=== PATIENT | female | born 1975 | race Caucasian/White ===

== ENCOUNTER → 2019-03-05 10:21 | Outpatient (CLI) | payer BC, SELFPAY ==
--- NOTE | 2019-03-05 10:34 | MRI_ITS ---
STUDY: MRI LUMBAR SPINE WITHOUT CONTRAST REASON FOR EXAM: Female, 43 years old. Back pain. Left leg numbness. TECHNIQUE: Standardized fat and water weighted pulse sequences were obtained in the sagittal and axial planes. COMPARISON: None. FINDINGS: Lumbar straightening. No significant scoliosis. Conus medullaris terminates normally at the L2 level. No acute fracture line. No cortical destruction. No dislocation. No spondylolisthesis. T12-L1: Normal endplates. Normal disc height, hydration and morphology. Normal bilateral facet joints. Normal central canal and bilateral lateral recesses. Normal bilateral intervertebral neural foramina. L1-2: Normal endplates. Shallow right paracentral disc protrusion without central canal narrowing (sagittal image 8 series 2 and axial image 22 series 5). Normal bilateral facet joints. Normal central canal and bilateral lateral recesses. Normal bilateral intervertebral neural foramina. L2-3: Normal endplates. Normal disc height, hydration and morphology. Normal bilateral facet joints. Normal central canal and bilateral lateral recesses. Normal bilateral intervertebral neural foramina. L3-4: Normal endplates. Normal disc height, hydration and morphology. Normal bilateral facet joints. Normal central canal and bilateral lateral recesses. Normal bilateral intervertebral neural foramina. L4-5: Normal endplates. Disc bulge, broad central protrusion, with mild central canal narrowing. Minimal facet joint arthrosis. Left lateral recess narrowing with impingement. Bilateral neural femoral narrowing without impingement. L5-S1: Mild endplate spondylosis. Disc bulge, annular fissure, with mild central canal narrowing. Minimal facet joint arthrosis. Normal bilateral lateral recesses. Bilateral neural frontal narrowing with impingement on the right. Sacrum intact. Normal paraspinal muscles. Normal retroperitoneum. Normal aorta. Marrow signal suggests red marrow reconversion/anemia. MRI/Spine Lumbar (Routine) IMPRESSION: Multilevel intervertebral disc disease with mild central canal narrowing at L4-5 and L5-S1 Left lateral recess narrowing with impingement of the left descending L5 nerve root Multilevel neural femoral narrowing with impingement of the right exiting L5 nerve root Lumbar straightening with minimal osseous degenerative change Bone marrow signal suggests red marrow reconversion/anemia (correlate CBC) Electronically Signed: Mick Kingston DO at 15:32 EDT Tel , Service support ,
== END ==
PROVIDERS: Family Provider Orthopaedic Surgery; PCP Orthopaedic Surgery; Referring Provider Anesthesiology Pain Medicine; Visit Provider Anesthesiology Pain Medicine
DX: M54.9 Dorsalgia, unspecified (principal); M79.605 Pain in left leg; R29.898 Other symptoms and signs involving the musculoskeletal system
CPT/HCPCS: 72148

== ENCOUNTER → 2019-06-01 12:57 | Outpatient (CLI) | payer BC, SELFPAY ==
--- NOTE | 2019-06-01 12:58 | RAD_ITS ---
STUDY: X-RAY - LUMBAR SPINE REASON FOR EXAM: Female, 44 years old. Low back pain, radiating numbness TECHNIQUE: 4 view(s) of the lumbar spine were obtained. COMPARISON: None FINDINGS: Normal lumbar lordosis. There is no substantial scoliosis. There is a normal alignment of the vertebrae. Normal vertebral bodies and endplates. Normal disc space heights except for narrowing at L5/S1. There is no demonstrated fracture. The soft tissue structures are unremarkable. RAD/L/S Spine Min 4 Views IMPRESSION: Degenerative changes at L5/S1, otherwise unremarkable lumbar spine Electronically Signed: Alberto Cerda MD at 14:01 EDT , Service support ,
--- NOTE | 2019-06-01 13:40 | RAD_ITS ---
STUDY: X-RAY - CERVICAL SPINE REASON FOR EXAM: Female, 44 years old. Neck pain and headache TECHNIQUE: 4 view(s) of the cervical spine were obtained. COMPARISON: None FINDINGS: Normal anterior atlantoaxial articulation. Normal odontoid process. Normal cervical lordosis. Normal vertebral bodies and endplates. Normal disc space heights. No evidence of instability on the flexion or extension views The soft tissue structures are unremarkable. RAD/Cerv Spine 4 or 5 Views IMPRESSION: Normal x-ray examination of the visualized cervical spine. Electronically Signed: Alberto Cerda MD at 14:09 EDT , Service support ,
== END ==
PROVIDERS: Family Provider Orthopaedic Surgery; PCP Orthopaedic Surgery; Referring Provider Orthopaedic Surgery; Visit Provider Orthopaedic Surgery
DX: M54.16 Radiculopathy, lumbar region (principal); R29.898 Other symptoms and signs involving the musculoskeletal system
CPT/HCPCS: 72050; 72110

== ENCOUNTER → 2019-06-16 | Outpatient (CLI) | payer BC, SELFPAY ==
--- NOTE | 2019-06-16 17:49 | MRI_ITS ---
HISTORY:NECK PAINpain ,numbness left arm and leg x 1 year NECK PAINpain ,numbness left arm and leg x 1 year TECHNIQUE: Routine MRI of the cervical spine was performed. IV Contrast dosage and agent: COMPARISON: Radiographs of the cervical spine obtained on June 01, 2019 FINDINGS: # of images incl. paperwork: [id number] Vertebral body heights are maintained The visualized portion of the posterior fossa appears within normal limits No abnormal signal is seen within the visualized portion of the spinal cord. Evaluation is mildly limited due to pulsation artifact C2/C3: Normal disc height and morphology. Normal central canal and neuroforamina. C3/C4: Normal disc height and morphology. Normal central canal and neuroforamina. C4/C5: Normal disc height and morphology. Normal central canal and neuroforamina. C5/C6: There is a tiny central disc protrusion effacing the ventral thecal sac but no evidence of canal stenosis. No neural foraminal narrowing C6/C7: Normal disc height and morphology. Normal central canal and neuroforamina. C7-T1: Tiny central disc protrusion effacing the ventral thecal sac but no evidence of canal stenosis or neural foraminal narrowing MRI/Spine Cervical (Routine) IMPRESSION: Tiny central disc protrusion seen at the level of C5-6 and C7-T1. No canal stenosis or neuroforaminal narrowing. at 1853 Reported and signed by: Jing Rodriguez DO Electronically Signed: Jing Rodrgiuez DO at 18:51 EDT Tel , Service support ,
== END | disposition home or self-care (01) ==
LOC: MRI 17:49
PROVIDERS: Family Provider Orthopaedic Surgery; PCP Orthopaedic Surgery; Referring Provider Orthopaedic Surgery; Visit Provider Orthopaedic Surgery
DX: R29.898 Other symptoms and signs involving the musculoskeletal system (principal); R20.0 Anesthesia of skin
CPT/HCPCS: 72141